=== PATIENT | female | born 1995 | race Caucasian/White ===

== ENCOUNTER 2019-07-20 17:18 | Emergency (ER) | payer BC ==
--- NOTE | 2019-07-20 17:29 | ERPHSYRPT ---
- History of Present Illness Time Seen by Provider: 07/20/19 17:29 Source: patient, family Exam Limitations: no limitations Physician History: 23 y/o white female s/p section one week ago. presents with soa and left shoulder pain. denies chest pain. pts hgb at discharge was 7.8 sx not improving. pt denies abd pain. denies fever and denies cough. Occurred: other (sx since last week) Method of Injury: other (no injury) Quality: intermittent, aching, throbbing Severity of Pain-Max: mild Severity of Pain-Current: mild Extremities Pain Location: shoulder: left Modifying Factors: Improves With: movement Associated Symptoms: dyspnea, short of breath, No back pain, No chest discomfort , No chest pain, No jaw pain, No neck pain Allergies/Adverse Reactions: No Known Drug Allergies Allergy (Verified 07/20/19 17:41) Home Medications: Escitalopram Oxalate [Lexapro] 20 mg PO DAILY 07/20/19 [History] Hx Influenza Vaccination/Date Given: No Hx Pneumococcal Vaccination/Date Given: No - Review of Systems Constitutional: No Symptoms Eyes: No Symptoms Ears, Nose, & Throat: No Symptoms Respiratory: Dyspnea Cardiac: No Symptoms, No Chest Pain, No Palpitations Abdominal/Gastrointestinal: No Symptoms, No Abdominal Pain, No Nausea, No Vomiting, No Diarrhea Genitourinary Symptoms: No Symptoms Skin: Skin Lesions Neurological: No Symptoms Psychological: No Symptoms Endocrine: No Symptoms Hematologic/Lymphatic: No Symptoms Immunological/Allergic: No Symptoms All Other Systems: Reviewed and Negative - Past Medical History Pertinent Past Medical History: Yes Neurological History: No Pertinent History ENT History: No Pertinent History Cardiac History: No Pertinent History Respiratory History: No Pertinent History Endocrine Medical History: No Pertinent History Musculoskeletal History: No Pertinent History GI Medical History: No Pertinent History History: No Pertinent History Psycho-Social History: No Pertinent History Female Reproductive Disorders: No Pertinent History Other Medical History: headaches occ - Past Surgical History Past Surgical History: No Neuro Surgical History: No Pertinent History Cardiac: No Pertinent History Respiratory: No Pertinent History Gastrointestinal: No Pertinent History Genitourinary: No Pertinent History Musculoskeletal: No Pertinent History Female Surgical History: No Pertinent History - Social History Smoking Status: Never smoker Exposure to second hand smoke: No Drug Use: none Patient Lives Alone: No - Nursing Vital Signs Nursing Vital Signs: Initial Vital Signs Temperature 99.2 F 07/20/19 17:35 Pulse Rate 82 07/20/19 17:35 Respiratory Rate 20 07/20/19 17:35 Blood Pressure 140/85 07/20/19 17:35 O2 Sat by Pulse Oximetry 97 07/20/19 17:35 Pain Scale Pain Intensity 6 - Physical Exam General Appearance: no apparent distress, alert, anxiety Eyes, Ears, Nose, Throat Exam: normal ENT inspection, moist mucous membranes Neck Exam: normal inspection, non-tender, supple, full range of motion Cardiovascular/Respiratory Exam: chest non-tender, normal breath sounds, regular rate/rhythm, heart sounds normal, no respiratory distress Abdominal Exam: non-tender, soft, no organomegaly, no hernia, No guarding, No tenderness Back Exam: normal inspection, normal range of motion, CVA tenderness Shoulder Exam: normal inspection, no evidence of injury, normal ROM Elbow/Forearm Exam: normal inspection, non-tender, no evidence of injury, normal ROM Wrist Exam: normal inspection, non-tender, no evidence of injury, normal ROM Hand Exam: normal inspection, non-tender, no evidence of injury, normal ROM Neuro/Tendon Exam: normal sensation, normal motor functions, normal tendon functions Mental Status Exam: alert, oriented x 3, cooperative Skin Exam: normal color, warm, dry SpO2 Interpretation: normal O2 Delivery: Room Air Ordered Tests: Active Orders 24 hr Category Date Time Status IV Insertion STAT Care 07/20/19 18:08 Active CHEST 1 VIEW (PORTABLE) Stat Exams 07/20/19 18:09 Taken CHEST WITH CONTRAST [CT] Stat Exams 07/20/19 20:14 Taken BMP Stat Lab 07/20/19 18:25 Completed CBC W DIFF Stat Lab 07/20/19 18:25 Completed D-DIMER QUANTITATION Stat Lab 07/20/19 18:25 Completed Lab/Rad Data: Laboratory Result Diagrams 07/20/19 18:25 07/20/19 18:25 Laboratory Results 07/20/19 07/20/19 07/20/19 Range/Units 18:25 18:25 18:25 WBC 11.1 H (4.0-10.5) K/mm3 RBC 3.28 L (4.1-5.4) M/mm3 Hgb 9.6 L (12.0-16.0) gm/dl Hct 29.1 L (35-47) % MCV 88.7 (78-100) fl MCH 29.2 (26-32) pg MCHC 33.0 (32-36) g/dl RDW 12.7 (11.5-14.0) % Plt Count 589 H (150-450) K/mm3 MPV 8.5 (6-9.5) fl Gran % 61.7 (36.0-66.0) % Eos # (Auto) 0.25 (0-0.5) Absolute Lymphs (auto) 3.00 (1.0-4.6) Absolute Monos (auto) 0.94 (0.0-1.3) Lymphocytes % 27.0 (24.0-44.0) % Monocytes % 8.5 (0.0-12.0) % Eosinophils % 2.3 (0.00-5.0) % Basophils % 0.5 (0.0-0.4) % Absolute Granulocytes 6.85 (1.4-6.9) Basophils # 0.06 (0-0.4) D-Dimer 2455 H* (215-500) ng/mL Sodium 142 (137-145) mmol/L Potassium 3.5 (3.5-5.1) mmol/L Chloride 106 (98-107) mmol/L Carbon Dioxide 25 (22-30) mmol/L Anion Gap 14.2 (5-15) MEQ/L BUN 13 (7-17) mg/dL Creatinine 0.56 (0.52-1.04) mg/dL Estimated GFR > 60.0 ML/MIN Glucose 85 (74-106) mg/dL Calcium 9.3 (8.4-10.2) mg/dL - Progress Progress: pain not gone completely, re-examined Progress Note: 07/20/19 20:39 cxr-no acute process cta chest-no pulmonary emboli. incidental cardiomegaly and granuloma Counseled pt/family regarding: lab results, diagnosis, need for follow-up, rad results - Departure Departure Disposition: Home Clinical Impression: Shoulder pain, SOB (shortness of breath) Condition: Stable Critical Care Time: No Referrals: TATO MACKEY [Primary Care Provider] - Additional Instructions: use tylenol and ibuprofen for pain. follow up with primary doctor and [employer] general supervisor for further management
[2019-07-20 18:39] LABS: BASOPHIL % 0.5 % (0.0-0.4); Basophil (Absolute #) 0.06 (0-0.4); Eosinophil % 2.3 % (0.00-5.0); Eosinophil (Absolute #) 0.25 (0-0.5); Granulocyte Absolute (ANC) 6.85 (1.4-6.9); Granulocytes % 61.7 % (36.0-66.0); Hematocrit 29.1 % (35-47); Hemoglobin 9.6 gm/dl (12.0-16.0); Mean Cell Volume 88.7 fl (78-100); Mean Platelet Volume 8.5 fl (6-9.5); Monocyte (Absolute #) 0.94 (0.0-1.3); Monocytes % 8.5 % (0.0-12.0); Platelet Count 589 K/mm3 (150-450); Red Blood Count 3.28 M/mm3 (4.1-5.4); Red Cell Distribution Width 12.7 % (11.5-14.0); White Blood Count 11.1 K/mm3 (4.0-10.5)
[2019-07-20 18:41] LABS: Mean Corpuscular Hemoglobin 29.2 pg (26-32)
[2019-07-20 18:51] LABS: ANION GAP 14.2 MEQ/L (5-15); BLOOD UREA NITROGEN 13 mg/dL (7-17); CHLORIDE 106 mmol/L (98-107); Calcium 9.3 mg/dL (8.4-10.2); Carbon Dioxide 25 mmol/L (22-30); Creatinine 1 0.56 mg/dL (0.52-1.04); Glucose 85 mg/dL (74-106); Potassium 3.5 mmol/L (3.5-5.1); SODIUM 142 mmol/L (137-145)
[2019-07-20 21:17] VITALS: BP 115/82; PULSE 74; O2SAT 97
--- NOTE | 2019-07-21 08:38 | XRAY ---
Indication: Short of breath and elevated d-dimer. Status post section. Multiple contiguous axial images obtained through the chest using 80 cc Isovue 370 contrast and PE protocol. Comparison: None There is satisfactory opacification of the pulmonary arteries to include the lobar and segmental branches. No filling defect or pulmonary embolus. Heart is borderline enlarged. Aorta is normal in course and caliber. Tiny right hilar calcified nodes. No pathologic mediastinal/hilar lymphadenopathy. Lungs are inflated with scattered right lung calcified granulomas. No suspicious pulmonary mass, infiltrate, or effusion. Bony thorax intact. Limited upper abdomen unremarkable. Impression: Negative pulmonary embolus. Borderline cardiomegaly. No acute cardiopulmonary abnormalities. Evidence for old granulomatous disease. CT DI 20.33
--- NOTE | 2019-07-21 08:40 | XRAY ---
Indication: Pain. Status post section. Comparison: None Portable chest is clear with incidental right lung calcified granulomas. Heart is not enlarged for AP portable technique. Bony thorax intact. Impression: Nonacute chest. Evidence for old granulomatous disease.
== END 2019-07-20 21:20 | disposition home or self-care (01) ==
LOC: ED 17:18
DX: M25.512 Pain in left shoulder (principal); R06.02 Shortness of breath
CPT/HCPCS: 36000; 36415; 71045; 71260; 80048; 85025; 85379; 99284